=== PATIENT | female | born 1955 | race Caucasian/White ===

== ENCOUNTER → 2017-11-26 | Outpatient (CLI) | payer OTHER | LOC: GMAB 15:45 | PROVIDERS: ATTEND Family Medicine | DX: Z00.00 Encounter for general adult medical examination without abnormal findings (principal) ==

== ENCOUNTER → 2017-12-03 | Outpatient (CLI) | payer OTHER | LOC: GMAB 11:52 | PROVIDERS: ATTEND Family Medicine | DX: R30.0 Dysuria (principal) ==

== ENCOUNTER → 2017-12-04 | Outpatient (CLI) | payer OTHER ==
--- NOTE | 2017-12-04 17:44 | US ---
EXAM DESCRIPTION: Venous,Lower Extremity RT CLINICAL HISTORY: KNEE PAIN COMPARISON: None Available. TECHNIQUE: Right lower extremity venous duplex FINDINGS: Doppler evaluation of the right lower extremity deep veins was performed. Normal color flow is seen in the common femoral, superficial femoral, profunda femoral and greater saphenous veins. Normal flow is seen in the popliteal vein and veins below the knee in the calf. Normal venous compressibility and flow augmentation. IMPRESSION: Negative for evidence of deep venous thrombosis on right lower extremity venous Doppler sonogram. Electronically signed by: Estevan Dias MD 12/04/2017 5:43 PM CDT
== END ==
LOC: US 13:55
PROVIDERS: ATTEND Family Medicine
DX: M25.561 Pain in right knee (principal); M17.11 Unilateral primary osteoarthritis, right knee

== ENCOUNTER → 2017-12-11 | Outpatient (CLI) | payer OTHER ==
--- NOTE | 2017-12-14 09:58 | MRI ---
Study: MRI of the Right Knee. Indication: KNEE PAIN RT Technique: Multiplanar, multi sequence MRI of the right knee was obtained without intravenous contrast. Comparison: None. Findings: ACL, PCL, MCL, and lateral collateral ligament complex intact. Scattered degenerative signal changes of the medial meniscus and lateral meniscus. Areas of grade 2 and 3 chondral thinning of the medial and lateral knee compartments noted. Low-grade tendinosis quadriceps tendon insertion. Patellar tendon intact. Trace lateral patellar tilt and subluxation. TT-TG distance measures 15 mm. Patchy irregular grade 4 chondrosis and subchondral marrow change junction lateral patellar facet and apex with additional areas of grade 2 and mild grade 3 chondrosis throughout the patella. Tiny effusion. Tiny Yoon cyst. No acute fracture. Impression: Scattered degenerative signal changes medial meniscus and lateral meniscus without tear. Tricompartmental chondrosis with changes most pronounced at the lateral patellar facet/apex with patchy grade 4 chondral loss. Tiny effusion. Electronically signed by: Jonathan Waddell MD 12/14/2017 9:56 AM CDT
== END ==
LOC: MRI 11:00
PROVIDERS: ATTEND Family Medicine
DX: M25.561 Pain in right knee (principal); M17.11 Unilateral primary osteoarthritis, right knee

== ENCOUNTER → 2020-09-19 | Outpatient (CLI) | payer OTHER | LOC: GMALS 17:45 | PROVIDERS: ATTEND Nurse Practitioner Acute Care | DX: M25.48 Effusion, other site (principal) ==